=== PATIENT | male | born 1955 | race Caucasian/White ===

== ENCOUNTER → 2017-02-09 | Outpatient (REF) | payer OTHER ==
[2017-02-09 12:31] LABS: REASON FOR REVIEW COMPREHENSIVE REVIEW
== END ==
LOC: M LAB REF 10:32
PROVIDERS: ATTEND Internal Medicine Medical Oncology
DX: D72.829 Elevated white blood cell count, unspecified (principal)

== ENCOUNTER → 2017-03-11 | Outpatient (CLI) | payer OTHER ==
--- NOTE | 2017-03-11 12:32 | REP ---
CT CHEST WITHOUT CONTRAST: 03/11/2017. Clinical history: CLL. The patient allergic to radiographic contrast. No IV or oral contrast used. Comparison: Chest x-ray 06/26/2004. Findings: The lung quach are well inflated. There is no pleural plaque or calcified pleural plaque. On image 81 there is a 5 mm nodule on the pleura of the lateral basal segment left lower lobe. There are no calcified pleural plaques, pleural-based masses, acute infiltrate, atelectasis or pleural effusion. There is a 6 mm oval nodule seen on image 53 in the superior segment of the right lower lobe. This abuts the subsegmental artery in that region. No other definite nodules or masses. Heart is not enlarged. There is no pericardial thickening or effusion. Some mediastinal nodes are present, but not of pathologic size with a 7 mm precarinal node as the largest visible in the chest and mediastinum. There are multiple axillary nodes and the largest is on the right at 11 mm short axis on image 22. Most others are subcentimeter in transverse section. Appear to be some supraclavicular nodes. The bone windows show the sternum, manubrium, clavicles, shoulders, spine, some minor wedging lower thoracic vertebral level at T12. This is not acute. Findings in the upper abdomen will be discussed in the abdominal CT. No hiatal hernia. Impression: 1. Some axillary adenopathy with increased numbers of nodes, but only one of them over a centimeter in short axis. No mediastinal nodes over a centimeter. 2. Aortic calcification without aneurysm. 3. No cardiomegaly. 4. There is a 6 mm noncalcified nodule superior segment of the right lower lobe and a pleural based 5 mm nodule lateral basal segment of the left lower lobe. No other significant finding. Signed by Allan Burnham MD 03/11/2017 05:33 P
--- NOTE | 2017-03-11 12:36 | REP ---
CT NECK WITHOUT CONTRAST: HISTORY: Lymphoma. The naso-, luis a- and hypopharynx, larynx and subglottic trachea are normal in appearance. The salivary and thyroid glands are normal in size and density. Enlarged lymph nodes 1.5 and 1.7 cm in width are present in the right internal jugular chain at the level of the luis a- and hypopharynx. An enlarged lymph node 1.9 cm in width is present in the left internal jugular chain at the level of the luis a- and hypopharynx. An enlarged lymph node 1.1 cm in width is present in the right submandibular area. An enlarged lymph node 1.4 cm in width is present in the left submandibular area. Small lymph nodes less than 1 cm in size are present in the posterior triangles, submental and supraclavicular areas as well as in the posterior subcutaneous soft tissue. Degenerative change is present in the cervical spine. The lung apices are clear. Minimal mucosal thickening is present in the ethmoid sinuses. IMPRESSION: Lymphadenopathy as described above. Signed by Sandoval Mckeon MD 03/11/2017 12:45 P
--- NOTE | 2017-03-11 12:52 | REP ---
CT ABDOMEN AND PELVIS WITHOUT CONTRAST: 03/11/2017. Clinical history: CLL. Technique: The patient allergic to IV contrast. No oral or IV contrast utilized. Coronal and sagittal reconstructions of the abdomen and pelvis performed. Bone windows also reviewed. Findings: No hiatal hernia. Stomach filled with retained food. There is no hepatomegaly. The spleen measures of 14.6 x 4.8 x 9.5 cm. This gives a calculated splenic volume of 666. This is mildly enlarged with a normal range for splenic index less than 480. No hepatic or splenic mass. Gallbladder contracted. No calcified stone. Pancreas unremarkable. Adrenal glands normal. The aorta has a few calcifications without aneurysm. There is no periaortic or retrocrural adenopathy. No pancreatic mass, edema or stone. No peripancreatic fluid collection. I see no pathologic sized retroperitoneal lymph adenoma. There is a small splenule measuring about 10 mm anterior to the lower pole of the spleen. Kidneys show no stone. There are bilateral cysts. There is no hydronephrosis, hydroureter or ureteral stone. Small bowel loops are intact. Colon without colitis or diverticulitis. Lung window review of all CT slices abdomen and pelvis show no perforation or free air. Bone windows show lumbar and lower thoracic spine grossly intact. There is a T12 grade 1 compression deformity, not acute. Hypertrophic facet changes lower lumbar spine. Visualized ribs intact. CT pelvis: SI joints, sacrum, pelvis and pubic rami intact. There are rim osteophytes on the hips at the acetabular margins. No AVN or fracture. No destructive lesion. The distal left colon and sigmoid were grossly intact. The small bowel loops in the deep pelvis were intact. Bladder without mass or wall thickening. No stone. Prostate mildly enlarged. No ventral or inguinal hernia. There are slight increased numbers of inguinal nodes on both sides. The largest about 9 mm in short axis. They have fat visible within. No intrapelvic adenopathy or ascites. Impression: 1. There is mild splenomegaly with a splenic index of 666, less than 480 is considered normal. No pathologic sized abdominal or pelvic adenopathy, ascites, hepatomegaly or periaortic/retroperitoneal adenopathy. 2. Gallbladder contracted with the stomach filled with retained food. There is a simple cyst in the dome of the liver about 11 mm in the right lobe. A few renal cysts seen. No stones or hydronephrosis. No other finding. Signed by Allan Tej, MD 03/11/2017 05:33 P
== END ==
LOC: M RAD 11:17
PROVIDERS: ATTEND Internal Medicine Medical Oncology
DX: C95.90 Leukemia, unspecified not having achieved remission (principal)

== ENCOUNTER → 2017-03-16 | Outpatient (REF) | payer OTHER | LOC: M LAB REF 12:32 | PROVIDERS: ATTEND Internal Medicine Medical Oncology | DX: C91.10 Chronic lymphocytic leukemia of B-cell type not having achieved remission (principal) ==

== ENCOUNTER 2017-04-04 09:06 | Day surgery (SDC) | payer OTHER ==
[~2017-04-04] VITALS: Ht 180.3 cm; Wt 120.2 kg
[~2017-04-04 09:06] MED LIST: PROPOFOL 200 MG/20 ML VIAL As Ordered ONE
[2017-04-04] MEDS ORDERED: NS 1,000 ML IV ONE (09:15)
--- NOTE | 2017-04-04 10:18 | ROOR ---
Patient Name: Gaston Singer Procedure Date: 04/04/2017 9:56 AM Date of : 1955 Age: 62 Room: [facility] Gender: Male Note Status: Finalized Procedure: Colonoscopy Indications: High risk colon cancer surveillance: Personal history of colonic polyps, Last colonoscopy: March 2014 Providers: Diaz NIELSEN MD Referring MD: SHARIFA STILL MD Requesting Provider: Medicines: Monitored Anesthesia Care Complications: No immediate complications. Procedure: Pre-Anesthesia Assessment: - The heart rate, respiratory rate, oxygen saturations, blood pressure, adequacy of pulmonary ventilation, and response to care were monitored throughout the procedure. The Colonoscope was introduced through the anus and advanced to the cecum, identified by appendiceal orifice and ileocecal valve. The colonoscopy was performed without difficulty. The patient tolerated the procedure well. The quality of the bowel preparation was good. Findings: The perianal and digital rectal examinations were normal. Three sessile polyps were found in the sigmoid colon. The polyps were diminutive in size. These polyps were removed with a cold snare. Resection and retrieval were complete. Two sessile polyps were found in the hepatic flexure and cecum. The polyps were diminutive in size. These polyps were removed with a cold snare. Resection and retrieval were complete. A few medium-mouthed diverticula were found in the sigmoid colon. Small Internal Hemorrhoids. A tattoo was seen in the proximal transverse colon. A post-polypectomy scar was found at the tattoo site. There was no evidence of residual polyp tissue. Impression: - Three diminutive polyps in the sigmoid colon, removed with a cold snare. Resected and retrieved. - Two diminutive polyps at the hepatic flexure and in the cecum, removed with a cold snare. Resected and retrieved. - Mild diverticulosis in the sigmoid colon. - Small Internal Hemorrhoids. - A tattoo was seen in the proximal transverse colon. A post-polypectomy scar was found at the tattoo site. There was no evidence of residual polyp tissue. - The exam was otherwise normal to the cecum. Recommendation: - Repeat colonoscopy in 3 years for surveillance. Diaz Nielsen MD Diaz NIELSEN MD 04/04/2017 10:18:28 AM This report has been signed electronically. Number of Addenda: 0 Note Initiated On: 04/04/2017 9:56 AM Estimated Blood Loss: Estimated blood loss: none.
[2017-04-04 10:50] VITALS: BP 137/70
== END 2017-04-04 10:59 | disposition home or self-care (01) ==
LOC: M OPP 09:06
PROVIDERS: ATTEND Internal Medicine Gastroenterology
DX: Z12.11 Encounter for screening for malignant neoplasm of colon (principal); D12.5 Benign neoplasm of sigmoid colon; D12.3 Benign neoplasm of transverse colon; D12.0 Benign neoplasm of cecum; K57.30 Diverticulosis of large intestine without perforation or abscess without bleeding; K64.8 Other hemorrhoids; G47.30 Sleep apnea, unspecified; F17.210 Nicotine dependence, cigarettes, uncomplicated; Z85.6 Personal history of leukemia; Z91.041 Radiographic dye allergy status

== ENCOUNTER → 2018-10-03 | Outpatient (CLI) | payer MEDICARE, OTHER ==
[~2018-10-03] MED LIST changes: +CBD OIL; +MULTCAP PO; -PROPOFOL 200 MG/20 ML VIAL As Ordered ONE; +[UNRECOGNIZED DRUG - CODE] PO
[2018-10-03 09:10] LABS: HEMATOCRIT 46.7 % (42.0-52.0); HEMOGLOBIN 15.5 g/dl (13.5-17.5); MEAN CORPUSCULAR HEMOGLOBIN 31.9 pg (27.0-33.0); MEAN CORPUSCULAR HGB CONC 33.2 g/dl (32.0-36.5); MEAN CORPUSCULAR VOLUME 96.1 fl (80.0-96.0); PLATELET COUNT, AUTOMATED 146 10^3/uL (150-450); RED BLOOD COUNT 4.86 10^6/uL (4.30-6.10)
[2018-10-03 10:21] LABS: ALBUMIN 3.6 GM/DL (3.2-5.2); ALT/SGPT 32 U/L (12-78); BILIRUBIN,TOTAL 0.6 MG/DL (0.2-1.0); BLOOD UREA NITROGEN 17 MG/DL (7-18); CALCIUM LEVEL 8.1 MG/DL (8.8-10.2); CARBON DIOXIDE LEVEL 25 MEQ/L (21-32); CHLORIDE LEVEL 109 MEQ/L (98-107); CREATININE FOR GFR 1.01 MG/DL (0.70-1.30); GLOMERULAR FILTRATION RATE > 60.0 (>49); GLUCOSE, FASTING 100 MG/DL (70-100); POTASSIUM SERUM 4.3 MEQ/L (3.5-5.1); SODIUM LEVEL 142 MEQ/L (136-145); TOTAL PROTEIN 6.4 GM/DL (6.4-8.2)
[2018-10-03 11:09] LABS: ATYPICAL LYMPH 5 % (0-5); EOSINOPHILS 1 % (0-5); LYMPHOCYTES 71 % (16-52); MONOCYTES 5 % (0-8); NEUTROPHILS 18 % (35-75); PLATELET ESTIMATE NORMAL (NORMAL)
[2018-10-03 11:10] LABS: SMUDGE CELLS 1+
== END ==
LOC: M LAB 07:37
PROVIDERS: ATTEND Internal Medicine
DX: I10 Essential (primary) hypertension (principal)

== ENCOUNTER → 2018-10-03 | Outpatient (CLI) | payer MEDICARE, OTHER ==
--- NOTE | 2018-10-03 09:13 | REP ---
CT NECK WITHOUT CONTRAST: HISTORY: CLL. COMPARISON: 03/11/2017. The naso-, luis a-, and hypopharynx, larynx and subglottic trachea are normal in appearance. The salivary and thyroid glands are normal in size and density. There are multiple enlarged lymph nodes that have increased in size compared to the previous study. The largest right internal jugular chain lymph node measures 1.9 cm in width. The largest left internal jugular chain lymph node measures 2 cm in width. The largest right posterior triangular lymph node measures 1.3 cm in width. The largest left posterior triangle lymph node measures 1.8 cm in width. The largest right submandibular lymph node measures 1.6 cm in width. The largest left submandibular lymph node measures 1.7 cm in width. The largest submental lymph node measures 1.3 cm in width. Enlarged lymph nodes are present in the parotid spaces. The largest right parotid space lymph node measures 1.4 cm in width . The largest left parotid space lymph node measures 1.4 cm in width. Small lymph nodes less than 1 cm in size are present throughout the neck. Degenerative change is present in the cervical spine. The lung apices are clear. Minimal mucosal thickening is present in the right maxillary sinus. IMPRESSION: Lymphadenopathy as described above. There has been progression of the lymphadenopathy compared to the previous study. Electronically Signed by Sandoval Mckeon MD 10/03/2018 09:21 A
--- NOTE | 2018-10-03 10:40 | REP ---
REASON FOR EXAM: CLL. COMPARISON EXAM: 03/11/2017. The lack of intravenous contrast decreases the sensitivity of the exam. The lack of administration of oral bowel preparatory contrast further limits the exam. Limited evaluation of the liver and spleen show no significant changes from the prior exam. Once again, mild splenomegaly is suspected. Hepatic cysts are seen unchanged. There is no gallbladder abnormality. There is fatty infiltration of the pancreas status quo. There are bilateral renal cysts difficult to evaluate without intravenous contrast, but showing no evidence of significant change from the prior exam. There is no significant change in the appearance of the abdominal aorta or periaortic regions. No adenopathy has developed. There is no free fluid or free air in the abdomen. There is no evidence of an intraabdominal mass or adenopathy. The bowel loops and their mesenteries are essentially unchanged. CT PELVIS: There is no free fluid or free air. There is sidewall adenopathy which has increased in size from the prior exam and seen in conjunction with increased groin lymph nodes which have increased in size and number. The pelvic bowel loops are essentially unchanged and again seen to be within normal limits. There is no free fluid or free air. Bone window technique throughout the exam shows no significant change in the appearance of the osseous structures. IMPRESSION: 1. Exam limitations as described above. 2. Pelvic adenopathy as described above. 3. Other findings which appear stable as described above. Electronically Signed by Mp Garrett DO 10/03/2018 10:57 A
--- NOTE | 2018-10-03 10:42 | REP ---
REASON FOR EXAM: CLL. COMPARISON EXAM: 03/11/2017 The lack of intravenous contrast decreases the sensitivity of the exam. The axillary lymph nodes appear stable. There are multiple nonenlarged mediastinal and suspected hilar lymph nodes status quo. There are no pleural or pericardial effusions. There is descending thoracic aortic ectasia status quo. This is seen in a limited fashion due to the lack of intravenous contrast administration. Bone window technique throughout the exam shows the osseous structures to be stable and intact with spinal degenerative changes status quo. Evaluation of the lung quach shows no evidence of a new abnormal nodule, mass, or opacity. IMPRESSION: No significant change from the prior exam with findings as described above. Electronically Signed by Mp Garrett DO 10/03/2018 10:57 A
== END ==
LOC: M RAD 08:03
PROVIDERS: ATTEND Internal Medicine Hematology & Oncology
DX: C91.10 Chronic lymphocytic leukemia of B-cell type not having achieved remission (principal); I10 Essential (primary) hypertension

== ENCOUNTER → 2020-06-09 | Outpatient (CLI) | payer MEDICARE, BC ==
[~2020-06-09] MED LIST changes: +CIDA500T2 PO; +CINN500C15 PO; +COEN50CA PO; +FISH1000 PO; +IMBR1CAP PO; +LISI10TA22 PO; +MULT-90 PO; +OMEG10002 PO; +RA T500C2 PO
--- NOTE | 2020-06-09 09:51 | REPVR ---
PROCEDURE INFORMATION: Exam: CT Neck Without Contrast Exam date and time: 06/09/2020 9:34 AM Age: 65 years old Clinical indication: Condition or disease; Cancer; Other: Cll, sll; Additional info: Cll, sll f/u TECHNIQUE: Imaging protocol: Computed tomography images of the neck without contrast. Radiation optimization: All CT scans at this facility use at least one of these dose optimization techniques: automated exposure control; mA and/or kV adjustment per patient size (includes targeted exams where dose is matched to clinical indication); or iterative reconstruction. COMPARISON: CT Neck without contrast 10/03/2018 8:20 AM FINDINGS: Nasopharynx: Unremarkable. Oropharynx: Unremarkable. No significant tonsillar enlargement. Hypopharynx: Unremarkable. Larynx: Unremarkable. Normal epiglottis. Retropharyngeal space: Unremarkable. Submandibular/Parotid glands: Normal. Glands are normal in size. Thyroid: Normal. No enlarged or calcified nodules. Lymph nodes: There is extensive cervical, supraclavicular and axillary lymphadenopathy. These have increased in size as compared to preceding examination. Dominant right submandibular lymph node measuring 3.7 x 2.1 cm previously measured 3.3 x 1.6 cm. Dominant left submandibular lymph node measuring 3.5 x 2.0 cm previously measured 3.0 x 1.8 cm. Trachea: Visualized trachea is unremarkable. Lungs: Unremarkable as visualized. Bones/joints: Unremarkable. No acute fracture. Soft tissues: Unremarkable. No significant soft tissue swelling. IMPRESSION: Progressive lymphadenopathy. Electronically signed by: America Perdomo On 06/09/2020 09:52:11 AM
--- NOTE | 2020-06-09 10:59 | REP ---
INDICATION: CLL, SLL F/U. COMPARISON: Comparison CT study October 03, 2018.. TECHNIQUE: Helical scanning is acquired. 3 mm axial images are generated. Coronal and sagittal MPR and coronal MIP images are generated. FINDINGS: There is progressive axillary lymphadenopathy bilaterally with increased size in the lymph nodes seen previously. The largest lymph node is in the right axilla where there is lymph node measuring up 6.2 cm in greatest diameter. There are multiple enlarged lymph nodes in each axilla. There is no evidence of supraclavicular or subclavian lymphadenopathy. No mediastinal adenopathy or hilar adenopathy is appreciated. The thoracic aorta is tortuous and ectatic but not aneurysmal. No pleural or pericardial effusion is seen. The spleen is prominent. This is unchanged. No infiltrate, mass or nodule is seen in the lung quach. IMPRESSION: Progressive bilateral axillary lymphadenopathy, particularly on the right. Stable splenomegaly. <Electronically signed by Ranjeet Crane > 06/09/20 [id number]
--- NOTE | 2020-06-09 11:09 | REP ---
INDICATION: CLL, SLL F/U COMPARISON: Comparison CT abdomen and pelvis October 03, 2018.. TECHNIQUE: Helical scanning is acquired in 4 mm axial images were reformatted. Coronal and sagittal MPR images were generated and reviewed. FINDINGS: Preliminary digital landscape maintenance internship radiograph is noncontributory. There is moderate splenomegaly. The spleen measures 16.8 cm in greatest transverse dimension. Previously, 15.4 cm by my measurement. Essentially unchanged. The liver is normal in size. There are 2 small stable low-density areas in the upper portion of the right lobe consistent with cysts unchanged. No focal hepatic or splenic lesion is seen. No abnormality is noted in the gallbladder. The pancreas is unremarkable. There is a tiny accessory splenule. Normal adrenal glands are seen bilaterally. There are low-density lesions in the kidneys consistent with cysts unchanged bilaterally. The largest of these is in the left kidney measuring 3.4 cm in greatest diameter. These are essentially unchanged. No hydronephrosis is seen. Normal caliber aorta is seen. No retroperitoneal adenopathy is seen. Small and large intestinal bowel loops are unremarkable in the abdomen and pelvis. Prostate is somewhat enlarged. Seminal vesicles and urinary bladder are unremarkable. Normal appendix is seen. There is bilateral external iliac lymphadenopathy. These lymph nodes are somewhat more prominent in size than on the October 03, 2018 study. This includes the right distal external iliac lymph node which measures 19 mm short axis dimension today on coronal image, previously 13 mm. A additional right external iliac lymph node is increased in short axis dimension from 14.2 to 20.1 mm on today's scan. A left external iliac lymph node measures 21 mm in short axis today, previously 18. There are no new nodes, several of the lymph nodes bilaterally appears slightly more prominent. There are multiple bilateral inguinal lymph nodes again noted which are essentially unchanged. No bony destructive lesion or abdominal wall defect is seen. IMPRESSION: 1. Moderate splenomegaly. 2. Interval increase in the size of several bilateral external iliac lymph nodes. 3. Enlarged prostate. 4. Stable bilateral renal cysts. <Electronically signed by Ranjeet Crane > 06/09/20 [id number]
== END ==
LOC: M RAD 09:16
PROVIDERS: ATTEND Specialist
DX: C91.10 Chronic lymphocytic leukemia of B-cell type not having achieved remission (principal)

== ENCOUNTER → 2020-06-26 | Outpatient (CLI) | payer MEDICARE, BC ==
[~2020-06-26] MED LIST changes: +ZYLO300T6 PO; +collagen PO
== END ==
LOC: M LABSMTC 10:29
PROVIDERS: ATTEND Anesthesiology
DX: Z01.812 Encounter for preprocedural laboratory examination (principal); Z20.822 Contact with and (suspected) exposure to COVID-19

== ENCOUNTER 2020-07-01 08:05 | Day surgery (SDC) | payer MEDICARE, BC ==
[~2020-07-01] VITALS: Ht 180.3 cm; Wt 116.9 kg
[~2020-07-01 08:05] MED LIST changes: +NS 1,000 ML IV ONE
[2020-07-01 09:04] LABS: HEMOGLOBIN 14.3 g/dl (13.5-17.5); MEAN CORPUSCULAR HEMOGLOBIN 29.2 pg (27.0-33.0); MEAN CORPUSCULAR HGB CONC 30.4 g/dl (32.0-36.5); MEAN CORPUSCULAR VOLUME 96.1 fl (80.0-96.0); PLATELET COUNT, AUTOMATED 117 10^3/uL (150-450); RED BLOOD COUNT 4.89 10^6/uL (4.30-6.10)
[2020-07-01 09:08] LABS: WHITE BLOOD COUNT 101.7 10^3/uL (4.0-10.0)
[2020-07-01 09:13] LABS: INR 1.04; PROTHROMBIN TIME 13.8 SECONDS (12.5-14.3)
[2020-07-01] MEDS ORDERED: propofoL 200 MG/20 ML VIAL As Ordered ONE (09:20)
[2020-07-01] MEDS ORDERED: LIDOCAINE 2% 100MG/5ML SDV (FOR ANES.) As Ordered ONE (09:20)
--- NOTE | 2020-07-01 09:49 | ROOR ---
Patient Name: Gaston Singer Procedure Date: 07/01/2020 9:27 AM Date of : 1955 Age: 65 Room: [facility] Gender: Male Note Status: Finalized Procedure: Colonoscopy Indications: High risk colon cancer surveillance: Personal history of colonic polyps, Last colonoscopy: April 2017 Providers: Diaz NIELSEN MD Referring MD: SHARIFA STILL MD Requesting Provider: Medicines: Monitored Anesthesia Care Complications: No immediate complications. Procedure: Pre-Anesthesia Assessment: - The heart rate, respiratory rate, oxygen saturations, blood pressure, adequacy of pulmonary ventilation, and response to care were monitored throughout the procedure. The Colonoscope was introduced through the anus and advanced to the terminal ileum, with identification of the appendiceal orifice and IC valve. The colonoscopy was performed without difficulty. The patient tolerated the procedure well. The quality of the bowel preparation was good. Findings: The perianal and digital rectal examinations were normal. A 5 mm polyp was found in the splenic flexure. The polyp was sessile. The polyp was removed with a cold snare. Resection and retrieval were complete. A tattoo was seen in the proximal sigmoid colon. A post-polypectomy scar was found at the tattoo site. There was no evidence of residual polyp tissue. Internal hemorrhoids were found during retroflexion. The hemorrhoids were medium-sized. The exam was otherwise without abnormality on direct and retroflexion views. Impression: - One 5 mm polyp at the splenic flexure, removed with a cold snare. Resected and retrieved. - A tattoo was seen in the proximal sigmoid colon. A post-polypectomy scar was found at the tattoo site. There was no evidence of residual polyp tissue. - Internal hemorrhoids. - The examination was otherwise normal on direct and retroflexion views. Recommendation: - Repeat colonoscopy in 3 years for surveillance. Procedure Code(s): --- Professional --- 10412, Colonoscopy, flexible; with removal of tumor(s), polyp(s), or other lesion(s) by snare technique Diagnosis Code(s): --- Professional --- K64.8, Other hemorrhoids K63.5, Polyp of colon Z86.010, Personal history of colonic polyps CPT copyright 2019 [employer]. All rights reserved. The codes documented in this report are preliminary and upon creping machine operator review may be revised to meet current compliance requirements. Diaz Nielsen MD Diaz NIELSEN MD 07/01/2020 9:49:46 AM Electronically signed by Diaz NIELSEN MD Number of Addenda: 0 Note Initiated On: 07/01/2020 9:27 AM Estimated Blood Loss: Estimated blood loss: none.
[2020-07-01 10:15] VITALS: BP 125/63
== END 2020-07-01 10:20 | disposition home or self-care (01) ==
LOC: M OPP 08:05
PROVIDERS: ATTEND Internal Medicine Gastroenterology
DX: Z12.11 Encounter for screening for malignant neoplasm of colon (principal); Z86.010 Personal history of colon polyps; D12.3 Benign neoplasm of transverse colon; K64.8 Other hemorrhoids; Z79.899 Other long term (current) drug therapy; Z87.891 Personal history of nicotine dependence; Z91.041 Radiographic dye allergy status

== ENCOUNTER → 2020-12-10 | Outpatient (REF) | payer MEDICARE, BC ==
[~2020-12-10] MED LIST changes: +ALLO300T2 PO; +BACT800T5 PO; -NS 1,000 ML IV ONE
== END ==
LOC: M LAB REF 13:55
PROVIDERS: ATTEND Physician Assistant
DX: L82.1 Other seborrheic keratosis (principal)
CPT/HCPCS: 11102; 88305; G0463

== ENCOUNTER → 2022-06-21 | Outpatient (CLI) | payer BC, MEDICARE ==
[~2022-06-21] MED LIST changes: +AVOD0.5C
== END ==
LOC: M RAD 14:23
PROVIDERS: ATTEND Specialist
DX: C91.10 Chronic lymphocytic leukemia of B-cell type not having achieved remission (principal)

== ENCOUNTER → 2022-06-29 | Outpatient (REF) | payer MEDICARE, BC | LOC: M SFHCDERM 17:24 | PROVIDERS: ATTEND Physician Assistant | DX: L82.1 Other seborrheic keratosis (principal) ==

== ENCOUNTER 2024-01-24 08:05 | Day surgery (SDC) | payer MEDICARE, BC ==
[~2024-01-24] VITALS: Ht 180.3 cm; Wt 113.3 kg
[~2024-01-24 08:05] MED LIST changes: +ROSU10TA61 PO; +VALS1TAB67 PO
[2024-01-24] MEDS: NS 1,000 ML IV ONE (08:39)
[2024-01-24] MEDS ORDERED: propofoL 200 MG/20 ML VIAL As Ordered ONE (08:57)
[2024-01-24 10:51] VITALS: BP 106/55; O2SAT 97
== END 2024-01-24 10:55 | disposition home or self-care (01) ==
LOC: M OPP 08:05
PROVIDERS: ATTEND Internal Medicine Gastroenterology
DX: Z86.010 Personal history of colon polyps (principal); K63.5 Polyp of colon; K57.30 Diverticulosis of large intestine without perforation or abscess without bleeding; K64.8 Other hemorrhoids; I10 Essential (primary) hypertension; E78.00 Pure hypercholesterolemia, unspecified; M19.90 Unspecified osteoarthritis, unspecified site; G47.30 Sleep apnea, unspecified; Z87.891 Personal history of nicotine dependence; Z91.041 Radiographic dye allergy status; Z79.899 Other long term (current) drug therapy

== ENCOUNTER → 2024-06-04 | Outpatient (CLI) | payer MEDICARE, BC ==
[2024-06-04 11:55] LABS: BASO # 0.1 10^3/uL (0.0-0.2); BASO % 0.6 % (0.0-1.0); EOS # 0.2 10^3/uL (0.0-0.5); EOS % 1.2 % (0.0-3.0); HEMATOCRIT 41.9 % (42.0-52.0); LYMPH # 6.2 10^3/uL (1.5-5.0); LYMPH % 48.2 % (24.0-44.0); MEAN CORPUSCULAR HEMOGLOBIN 32.8 pg (27.0-33.0); MEAN CORPUSCULAR HGB CONC 33.4 g/dl (32.0-36.5); MEAN CORPUSCULAR VOLUME 98.1 fl (80.0-96.0); MONO # 0.9 10^3/uL (0.0-0.8); MONO % 6.9 % (2.0-8.0); NEUTROPHILS # 5.5 10^3/uL (1.5-8.5); NEUTROPHILS % 42.7 % (36.0-66.0); PLATELET COUNT, AUTOMATED 125 10^3/uL (150-450); RED BLOOD COUNT 4.27 10^6/uL (4.30-6.10); WHITE BLOOD COUNT 12.8 10^3/uL (4.0-10.0)
[2024-06-04 12:30] LABS: LDH LACTATE DEHYDROGENASE 174 U/L (120-246)
[2024-06-04 12:31] LABS: ALBUMIN 3.6 G/DL (3.2-5.2); ALKALINE PHOSPHATASE 67 U/L (40-129); ALT/SGPT 21 U/L (7.0-40); AST/SGOT 18 U/L (<34); BILIRUBIN,TOTAL 1.5 MG/DL (0.3-1.2); BLOOD UREA NITROGEN 21 MG/DL (9-23); CALCIUM LEVEL 8.5 MG/DL (8.3-10.6); CARBON DIOXIDE LEVEL 26 MMOL/L (20-31); CHLORIDE LEVEL 108 MMOL/L (98-107); CREATININE FOR GFR 1.03 MG/DL (0.70-1.30); GLOMERULAR FILTRATION RATE > 60.0 (>42); GLUCOSE, FASTING 86 MG/DL (74-106); POTASSIUM SERUM 4.5 MMOL/L (3.5-5.1); SODIUM LEVEL 142 MMOL/L (136-145); TOTAL PROTEIN 6.1 G/DL (5.7-8.2)
== END ==
LOC: M LAB 11:12
PROVIDERS: ATTEND Specialist
DX: C91.10 Chronic lymphocytic leukemia of B-cell type not having achieved remission (principal)

== ENCOUNTER → 2025-01-29 | Outpatient (CLI) | payer MEDICARE, BC ==
[~2025-01-29] MED LIST changes: -AVOD0.5C; +AVOD0.5C PO; +CELE100C PO; -RA T500C2 PO; +TURM500C10 PO
[2025-01-29 14:58] LABS: BASO # 0.1 10^3/uL (0.0-0.2); BASO % 0.6 % (0.0-1.0); EOS # 0.1 10^3/uL (0.0-0.5); EOS % 0.9 % (0.0-3.0); LYMPH # 4.8 10^3/uL (1.5-5.0); LYMPH % 44.0 % (24.0-44.0); MONO # 0.8 10^3/uL (0.0-0.8); MONO % 7.0 % (2.0-8.0); NEUTROPHILS # 5.1 10^3/uL (1.5-8.5); NEUTROPHILS % 47.1 % (36.0-66.0); PLATELET COUNT, AUTOMATED 112 10^3/uL (150-450)
[2025-01-29 15:21] LABS: LDH LACTATE DEHYDROGENASE 210.0 U/L (120-246)
[2025-01-29 15:22] LABS: ALT/SGPT 28.0 U/L (7.0-40); AST/SGOT 31.0 U/L (<34); CALCIUM LEVEL 8.6 MG/DL (8.3-10.6); CARBON DIOXIDE LEVEL 29.0 MMOL/L (20-31); CHLORIDE LEVEL 103.0 MMOL/L (98-107); CREATININE FOR GFR 1.18 MG/DL (0.70-1.30); GLOMERULAR FILTRATION RATE 65.6 (>42); POTASSIUM SERUM 4.3 MMOL/L (3.5-5.1); SODIUM LEVEL 139.0 MMOL/L (136-145)
== END ==
LOC: M LAB 12:26
PROVIDERS: ATTEND Specialist
DX: C91.10 Chronic lymphocytic leukemia of B-cell type not having achieved remission (principal)

== ENCOUNTER → 2025-02-05 | Outpatient (CLI) | payer MEDICARE, BC | LOC: M RAD 09:17 | PROVIDERS: ATTEND Internal Medicine Hematology & Oncology | DX: C91.90 Lymphoid leukemia, unspecified not having achieved remission (principal); N28.1 Cyst of kidney, acquired; R17 Unspecified jaundice ==